=== PATIENT | male | born 1940 | race African-American/Black ===

== ENCOUNTER 2017-04-14 03:19 | Inpatient (IN) | payer MEDICARE, OTHER ==
[~2017-04-14] VITALS: Ht 195.6 cm; Wt 116.0 kg
[2017-04-14] MEDS ORDERED: ACETAMINOPHEN 325 MG TAB PO ONE (03:30)
[2017-04-14 04:31] LABS: Basophils # (auto) 0 uL; Basophils % (auto) 0.2 % (0.0-2.0); Eosinophils # (auto) 0 uL; Hematocrit 44.7 % (41.0-53.0); Hemoglobin 14.9 g/dL (13.5-17.5); Lymphocytes # (auto) 0.7 uL; Lymphocytes % (auto) 4.5 % (10.0-50.0); Mean Corpuscular Hemoglobin 29.2 pg (28.0-32.0); Mean Corpuscular Hgb Conc. 33.3 g/dL (32.0-36.0); Mean Corpuscular Volume 87.7 fL (80.0-100.0); Mean Platelet Volume 7.9 fL (6.9-10.8); Monocytes # (auto) 1.3 uL; Monocytes % (auto) 8.4 % (0.0-12.0); Neutrophils % (auto) 86.9 % (37.0-80.0); Platelet Count (auto) 154 10^3/uL (140-450); Red Cell Distribution Width 14.1 % (11.8-14.3)
[2017-04-14 04:48] LABS: Albumin 3.5 g/dL (3.4-5.0); Anion Gap 10 (5-15); BUN/Creatinine Ratio 12.4; Blood Urea Nitrogen 20 mg/dL (7-18); Calcium 8.8 mg/dL (8.5-10.1); Carbon Dioxide 27 mmol/L (21-32); Chloride 102 mmol/L (98-107); GFR African American 54 mL/min; GFR Non-African American 45 mL/min; Glucose 135 mg/dL (74-106); Potassium 3.4 mmol/L (3.5-5.1); Sodium 139 mmol/L (136-145)
[2017-04-14 04:50] LABS: Lactic Acid w/Reflex 3.6 mmol/L (0.4-2.0)
[2017-04-14 04:57] LABS: Alkaline Phosphatase 50 U/L (45-117); Aspartate Aminotransferase 21 U/L (15-37); Total Protein 7.9 g/dL (6.4-8.2)
[2017-04-14 05:43] LABS: REFLEX LACTIC ACID YES OR NO YES
[2017-04-14 06:00] LABS: INR 1.17 (0.9-1.15); Partial Thromboplastin Time 27.8 sec (22.64-33.71); Prothrombin Time 12.8 sec (9.37-12.3)
[2017-04-14 06:01] LABS: Temperature: 22.2 C (20.0-25.0)
[2017-04-14 07:11] LABS: Urine Bilirubin Negative (Negative); Urine Blood 2+ /uL (Negative); Urine Color Yellow (Yellow); Urine Glucose Normal (Normal); Urine Hyaline Cast FEW /lpf (0 - 2); Urine Ketone Negative (Negative); Urine Mucus FEW (None Seen); Urine Nitrite Negative (Negative); Urine RBC 95 /hpf (0 - 3); Urine Squamous Epithelial Cell FEW /hpf (<5); Urine Urobilinogen Normal (Negative); Urine pH 5.5 (5.0-8.0)
[2017-04-14] MEDS ORDERED: SODIUM CHLORIDE 0.9% 1,000 ML IV ONE ×3 (07:52→21:15)
[2017-04-14] MEDS ORDERED: cefTRIAXone 1GM/10ml IVPUSH 10 ML IV ONE ×2 (08:00→14:15)
[2017-04-14] MEDS ORDERED: IODIXANOL 320MG/ML 100ML BTL IV ONE (09:24)
[2017-04-14] MEDS ORDERED: IOHEXOL 300 MG/ML 100ML BOTTLE IJ ONE (09:50)
[2017-04-14 09:57] LABS: Lactic Acid w/Reflex 3.2 mmol/L (0.4-2.0)
[2017-04-14 10:04] LABS: REFLEX LACTIC ACID YES OR NO NO
[2017-04-14] MEDS ORDERED: LACTULOSE 20Gm/30ML SOLN PO PRN (14:15)
[2017-04-14] MEDS ORDERED: PROMETHAZINE HCL 25 MG/ML 1ML IV PRN (14:15)
[2017-04-14] MEDS ORDERED: NITROGLYCERIN 0.4 MG SL TAB SL PRN (14:15)
[2017-04-14] MEDS ORDERED: HYDROcodone-ACET 5/325MG TAB PO PRN (14:15)
[2017-04-14] MEDS ORDERED: TEMAZEPAM 15 MG CAP PO PRN (14:15)
[2017-04-14] MEDS ORDERED: SODIUM CHLORIDE 0.9% 1,000 ML IV SCH (14:15)
[2017-04-14] MEDS ORDERED: LORazepam 0.5 MG TAB PO PRN (14:15)
[2017-04-14] MEDS ORDERED: MORPHINE SULF INJ 2 MG/ML SYRINGE 1ML IV PRN ×2 (14:15)
[2017-04-14] MEDS ORDERED: ENOXAPARIN SOD 40 MG/0.4 ML SYRINGE SC ONE (14:30)
[2017-04-14] MEDS ORDERED: POTASSIUM CHL 20 Meq TABLET PO ONE (15:00)
[2017-04-14] MEDS: ACETAMINOPHEN 500 MG TAB PO PRN (15:22)
[2017-04-14] MEDS: SODIUM CHLORIDE 0.9% 1,000 ML IV SCH (16:00)
[2017-04-14 16:30] VITALS: BP 109/64
[2017-04-14 17:38] VITALS: BP 109/64
[2017-04-14] MEDS ORDERED: PIPERACILLIN-TAZOB 3.375GM 50 ML IV ONE (17:45)
[2017-04-14] MEDS: PIPERACILLIN-TAZOB 3.375GM 50 ML IV SCH (18:45)
[2017-04-14] MEDS ORDERED: DILTIAZEM HCL 25 MG/5 ML VIAL IV ONE (21:15)
[2017-04-14 21:44] VITALS: BP 90/65
[2017-04-15] MEDS: PROPRANOLOL HCL 20 MG TAB PO SCH ×3 (00:32→21:42)
[2017-04-15] MEDS: PIPERACILLIN-TAZOB 3.375GM 50 ML IV SCH ×2 (00:33→06:19)
[2017-04-15] MEDS: PRAVASTATIN SODIUM 20 MG TAB PO SCH ×2 (00:34→21:41)
[2017-04-15] MEDS: SODIUM CHLORIDE 0.9% 1,000 ML IV SCH ×2 (03:36→10:48)
[2017-04-15] MEDS ORDERED: KETO2CRE4 TOP (04:50)
[2017-04-15] MEDS ORDERED: PROP80CA10 PO (04:50)
[2017-04-15] MEDS ORDERED: DILT300C PO (04:50)
[2017-04-15] MEDS ORDERED: DYA375C PO (04:50)
[2017-04-15] MEDS ORDERED: PRAV20TA3 PO (04:50)
[2017-04-15 04:53] VITALS: BP 108/72
[2017-04-15 06:37] LABS: Basophils # (auto) 0 uL; Eosinophils # (auto) 0 uL; Hematocrit 39.7 % (41.0-53.0); Hemoglobin 13.1 g/dL (13.5-17.5); Lymphocytes # (auto) 0.9 uL; Lymphocytes % (auto) 5.8 % (10.0-50.0); Mean Corpuscular Hemoglobin 28.8 pg (28.0-32.0); Mean Corpuscular Hgb Conc. 33.1 g/dL (32.0-36.0); Mean Corpuscular Volume 87.2 fL (80.0-100.0); Monocytes # (auto) 0.8 uL; Monocytes % (auto) 4.8 % (0.0-12.0); Neutrophils # (auto) 14.5 uL; Neutrophils % (auto) 89.4 % (37.0-80.0); Platelet Count (auto) 113 10^3/uL (140-450); Red Cell Distribution Width 14.3 % (11.8-14.3); White Blood Cell 16.2 10^3/uL (4.4-10.8)
[2017-04-15 06:50] LABS: Potassium 3.4 mmol/L (3.5-5.1)
[2017-04-15 06:53] LABS: Albumin 2.7 g/dL (3.4-5.0); Calcium 7.7 mg/dL (8.5-10.1)
[2017-04-15 06:55] LABS: Bilirubin, Total 0.7 mg/dL (0.2-1.0); Total Protein 6.3 g/dL (6.4-8.2)
[2017-04-15 08:06] VITALS: BP 109/70
[2017-04-15] MEDS ORDERED: cefTRIAXone 1GM/10ml IVPUSH 10 ML IV SCH (09:00)
[2017-04-15] MEDS ORDERED: ENOXAPARIN SOD 40 MG/0.4 ML SYRINGE SC SCH (10:00)
[2017-04-15] MEDS ORDERED: DILTIAZEM HCL 120MG ER CAP PO SCH (10:00)
[2017-04-15] MEDS ORDERED: DILTIAZEM HCL 180MG ER CAP PO SCH ×2 (10:00)
[2017-04-15] MEDS: cefTRIAXone 1GM/10ml IVPUSH 10 ML IV SCH (10:57)
[2017-04-15 11:55] VITALS: BP 157/84
[2017-04-15 16:56] VITALS: BP 138/88
[2017-04-15] MEDS ORDERED: TAMSULOSIN HYDROCHLORIDE 0.4 MG CAP PO SCH (18:00)
[2017-04-15 20:00] VITALS: BP 133/72
[2017-04-15] MEDS: ACETAMINOPHEN 500 MG TAB PO PRN (21:43)
[2017-04-15 21:57] VITALS: BP 133/72
[2017-04-16 04:27] VITALS: BP 129/82
[2017-04-16 05:56] LABS: Basophils # (auto) 0 uL; Basophils % (auto) 0.1 % (0.0-2.0); Eosinophils # (auto) 0 uL; Hematocrit 34.8 % (41.0-53.0); Hemoglobin 11.8 g/dL (13.5-17.5); Lymphocytes # (auto) 0.7 uL; Lymphocytes % (auto) 6.5 % (10.0-50.0); Mean Corpuscular Hemoglobin 29.5 pg (28.0-32.0); Mean Corpuscular Hgb Conc. 33.9 g/dL (32.0-36.0); Mean Platelet Volume 8.3 fL (6.9-10.8); Neutrophils # (auto) 9.5 uL; Neutrophils % (auto) 84.4 % (37.0-80.0); Nucleated Red Blood Cells % 0.1 %; Platelet Count (auto) 112 10^3/uL (140-450); Red Cell Distribution Width 14.2 % (11.8-14.3); White Blood Cell 11.3 10^3/uL (4.4-10.8)
[2017-04-16 06:18] LABS: BUN/Creatinine Ratio 15.6; Calcium 7.5 mg/dL (8.5-10.1); Potassium 3.3 mmol/L (3.5-5.1)
[2017-04-16] MEDS: SODIUM CHLORIDE 0.9% 1,000 ML IV SCH ×2 (06:48→13:25)
[2017-04-16 08:00] VITALS: BP 106/63
[2017-04-16 08:19] VITALS: BP 106/63
[2017-04-16] MEDS: PROPRANOLOL HCL 20 MG TAB PO SCH (09:58)
[2017-04-16] MEDS: cefTRIAXone 1GM/10ml IVPUSH 10 ML IV SCH (09:59)
[2017-04-16] MEDS ORDERED: POTASSIUM CHL 20 Meq TABLET PO ONE (11:15)
[2017-04-16 13:04] VITALS: BP 121/69
[2017-04-16 13:55] VITALS: BP 121/69
[2017-04-16 14:04] VITALS: BP 106/63
== END 2017-04-16 14:40 | disposition home or self-care (01) | DRG 871 ==
LOC: EDBD 03:19 → ER 03:24 → TELE 03:25 → TELE-EAST 16:37
PROVIDERS: ADMIT Internal Medicine; ATTEND Internal Medicine
DX: A41.9 Sepsis, unspecified organism (principal); N17.0 Acute kidney failure with tubular necrosis; N39.0 Urinary tract infection, site not specified; N28.1 Cyst of kidney, acquired; I11.9 Hypertensive heart disease without heart failure; E87.6 Hypokalemia; K80.20 Calculus of gallbladder without cholecystitis without obstruction; K44.9 Diaphragmatic hernia without obstruction or gangrene; I51.7 Cardiomegaly; E78.5 Hyperlipidemia, unspecified; I25.10 Atherosclerotic heart disease of native coronary artery without angina pectoris; I70.0 Atherosclerosis of aorta; Z86.718 Personal history of other venous thrombosis and embolism; Z90.49 Acquired absence of other specified parts of digestive tract
CPT/HCPCS: 36415; 71010; 71275; 80048; 80053; 81001; 83605; 83880; 84443; 84484; 85025; 85379; 85610; 85652; 85730; 87040; 87086; 93005; 96361; 96365; 96367; 97116; 97163; 97530; J2543; Q9967

== ENCOUNTER 2020-01-02 03:32 | Inpatient (IN) | payer MEDICARE, OTHER ==
[~2020-01-02] VITALS: Ht 195.6 cm; Wt 106.5 kg
[~2020-01-02 03:32] MED LIST: DILT-23 PO; DYA375C PO; KETO2CRE4 TOP; PRAV20TA3 PO; PROP80CA40 PO
[2020-01-02] MEDS ORDERED: dilTIAZem HCL 60 MG TAB PO ONE (05:45)
[2020-01-02] MEDS ORDERED: dilTIAZem 25 MG/5 ML VIAL IV ONE (05:45)
[2020-01-02] MEDS ORDERED: ACETAMINOPHEN 325 MG TAB PO ONE (06:30)
[2020-01-02 07:28] LABS: Hematocrit 38.6 % (41.0-53.0); Hemoglobin 12.4 g/dL (13.5-17.5); Mean Corpuscular Hemoglobin 27.5 pg (28.0-32.0); Mean Corpuscular Hgb Conc. 32.1 g/dL (32.0-36.0); Mean Corpuscular Volume 85.8 fL (80.0-100.0); Platelet Count (auto) 170 10^3/uL (140-450); Red Cell Distribution Width 14.4 % (11.8-14.3); White Blood Cell 11.9 10^3/uL (4.4-10.8)
[2020-01-02 07:31] LABS: Basophils % (manual) 0 (0.0-2.0); Blast Cells 0; Eosinophils % (manual) 0 (0-7); Metamyelocytes % 0; Myelocytes % 0; Promyelocytes % 0; Reactive Lymphocytes 0
[2020-01-02 07:33] LABS: Urine Bacteria MOD /hpf (None Seen); Urine Blood 2+ /uL (Negative); Urine Specific Gravity 1.016 (1.001-1.035); Urine WBC 1878 /hpf (0 - 3)
[2020-01-02 07:51] LABS: Albumin 2.8 g/dL (3.4-5.0); Alcohol, Urine < 3.0 mg/dL (0-10); Amphetamine Screen, Urine NEGATIVE (NEGATIVE); Anion Gap 5 (5-15); Barbiturate Scree,Urine NEGATIVE (NEGATIVE); Benzodiazephine Screen, Urine NEGATIVE (NEGATIVE); Blood Alcohol < 3.0 mg/dL (0-5); Blood Urea Nitrogen 29 mg/dL (7-18); Calcium 8.1 mg/dL (8.5-10.1); Cannabinoid Screen, Urine NEGATIVE (NEGATIVE); Carbon Dioxide 28 mmol/L (21-32); Chloride 106 mmol/L (98-107); Cocaine Screen, Urine NEGATIVE (NEGATIVE); Glucose 97 mg/dL (74-106); Opiate Scree,Urine NEGATIVE (NEGATIVE); Phencyclidine Screen, Urine NEGATIVE (NEGATIVE); Potassium 3.1 mmol/L (3.5-5.1); Sodium 139 mmol/L (136-145)
[2020-01-02 07:56] LABS: Alanine Aminotransferase 21 U/L (16-61); Alkaline Phosphatase 68 U/L (45-117); Aspartate Aminotransferase 36 U/L (15-37); BUN/Creatinine Ratio 16.2; Bilirubin, Total 1.4 mg/dL (0.2-1.0); GFR African American 47 mL/min; GFR Non-African American 39 mL/min; Total Protein 6.8 g/dL (6.4-8.2)
[2020-01-02 08:05] LABS: Band Neutrophils % (manual) 4; Lymphocytes % (manual) 9 (10.0-50.0); Monocytes % (manual) 11 (0-12)
[2020-01-02] MEDS ORDERED: cefTRIAXone 1GM/50ML D5W 50 ML IV ONE (08:30)
[2020-01-02] MEDS ORDERED: POTASSIUM EFFERVESENT TAB 25 MEQ PO ONE ×2 (08:30→12:00)
[2020-01-02] MEDS ORDERED: MORPHINE SULF INJ 2 MG/ML SYRINGE 1ML IV PRN ×2 (11:45)
[2020-01-02] MEDS ORDERED: ACETAMINOPHEN 500 MG TAB PO PRN ×2 (11:45)
[2020-01-02] MEDS ORDERED: LACTULOSE 20Gm/30ML SOLN PO PRN (11:45)
[2020-01-02] MEDS ORDERED: traMADol HCL 50 MG TAB PO PRN (11:45)
[2020-01-02] MEDS ORDERED: SODIUM CHLORIDE 0.9% 1,000 ML IV ONE (11:45)
[2020-01-02] MEDS ORDERED: TEMAZEPAM 15 MG CAP PO PRN (11:45)
[2020-01-02] MEDS ORDERED: NITROGLYCERIN 0.4 MG SL TAB SL PRN (11:45)
[2020-01-02] MEDS: AZITHROMYCIN 500MG/ 250ML 250 ML IV SCH (12:53)
[2020-01-02] MEDS: ALBUTEROL SULF HFA 90MCG INH 200DOSE IN SCH ×2 (14:00→21:38)
--- NOTE | 2020-01-02 14:00 | NUR ---
Respiratory note: MDI NOT AT BEDSIDE. PENDING COVID RESULTS, NO RESP DISTRESS NOTED. HR 60, RR 24,SPO2 100% ON ROOM AIR. RN IS AWARE OF MDI BEING HELD.
[2020-01-02 17:05] VITALS: BP 152/57
--- NOTE | 2020-01-02 17:05 | NUR ---
Telemetry admit from ER SUSANA SHUKLA admitted to Telemetry unit after SBAR received. Patient oriented to SILAS KRUGER, primary RN, unit, room, bed, and unit policies regarding patient care and visiting hours. Patient now on continuous telemetry monitoring, tele box # 12 and telemetry reading on arrival to unit is SR. Patient placed on bedside oxygen, weighed by bedscale and encouraged to call if they need something. All questions and concerns addressed, patient verbalized understanding.
--- NOTE | 2020-01-02 17:15 | NUR ---
PT TREMBLING AT TIME OF ADMISSION. TEMPERATURE IS 102.2. WILL ADMINISTER TYLENOL, APPLY COOLING MEASURES AND WILL REASSESS.
[2020-01-02 17:20] LABS: INR 1.11 (0.9-1.15)
--- NOTE | 2020-01-02 17:35 | NUR ---
PAGED DR BERRY PER NOTE. LEFT VOICEMAIL. AWAITING VOICEMAIL. Addendum: 01/02/20 at 1901 by SILAS KRUGER RN AWAITING CALLBACK.
[2020-01-02 17:53] VITALS: BP 124/68
--- NOTE | 2020-01-02 18:35 | NUR ---
PT'S TEMP IS NOW 97.6 AND NO LONGER TREMBLING.
--- NOTE | 2020-01-02 19:10 | NUR ---
opening note pt alert to self and situation only. no c/o pain or discomfort. respirations even nonlabored on 3Lnc. POC discussed. bed in low locked position, call light within reach.
[2020-01-02] MEDS: BUDESONIDE (INHALATION) 180 MCG IH IN SCH (21:38)
[2020-01-02] MEDS: ENOXAPARIN SOD 100 MG/1 ML SYRINGE SC SCH (21:54)
[2020-01-02] MEDS: ATORVASTATIN 20 MG TAB PO SCH (21:54)
[2020-01-02 22:00] VITALS: BP 102/67
--- NOTE | 2020-01-02 22:30 | NUR ---
Gave an update to dr. James, no new orders received.
[2020-01-03 05:00] VITALS: BP 114/63
[2020-01-03] MEDS: ALBUTEROL SULF HFA 90MCG INH 200DOSE IN SCH ×3 (06:00→21:45)
[2020-01-03 07:22] LABS: Basophils # (auto) 0 10 ^3/uL (0-0.2); Basophils % (auto) 0.1 % (0.0-2.0); Eosinophils # (auto) 0.1 10 ^3/uL (0-0.8); Eosinophils % (auto) 0.5 % (0.0-7.0); Hematocrit 35.7 % (41.0-53.0); Hemoglobin 11.8 g/dL (13.5-17.5); Lymphocytes # (auto) 0.6 10 ^3/uL (0.4-5.4); Lymphocytes % (auto) 5.3 % (10.0-50.0); Mean Corpuscular Hemoglobin 28.2 pg (28.0-32.0); Mean Corpuscular Hgb Conc. 33.2 g/dL (32.0-36.0); Monocytes # (auto) 0.8 10 ^3/uL (0-1.3); Monocytes % (auto) 7.5 % (0.0-12.0); Neutrophils # (auto) 9.4 10 ^3/uL (1.6-8.6); Neutrophils % (auto) 86.6 % (37.0-80.0); Platelet Count (auto) 176 10^3/uL (140-450); Red Blood Cells 4.19 10^6/uL (4.5-5.90); Red Cell Distribution Width 14.4 % (11.8-14.3); White Blood Cell 10.8 10^3/uL (4.4-10.8)
--- NOTE | 2020-01-03 07:26 | NUR ---
closing note pt resting in right lateral position. respirations even nonlabored on 3Lnc. no complaints of pain or discomfort. endorsed care to day shift RN Will.
[2020-01-03 07:45] LABS: Albumin 2.5 g/dL (3.4-5.0); Calcium 7.6 mg/dL (8.5-10.1); Potassium 3.3 mmol/L (3.5-5.1)
[2020-01-03 07:51] LABS: BUN/Creatinine Ratio 19.7; Bilirubin, Total 1.1 mg/dL (0.2-1.0)
--- NOTE | 2020-01-03 08:06 | NUR ---
OPENING SHIFT NOTE Resumed care of patient. PT is awake and now a&ox4. No SOB or s/s of distress at this time. Instructed on plan of care and encouraged patient to call for assistance as needed, patient verbalized understanding. Bed is locked in lowest position, side rails x 2 are up, call light is within reach, and bed alarm is on.
[2020-01-03 09:00] VITALS: BP 127/72
[2020-01-03] MEDS ORDERED: QUET100T46 PO (09:47)
[2020-01-03] MEDS ORDERED: ALFU10TA33 PO (09:47)
[2020-01-03] MEDS ORDERED: DONE10TA40 PO (09:47)
[2020-01-03] MEDS ORDERED: MEMA1TAB3 PO (09:47)
[2020-01-03] MEDS ORDERED: ENOXAPARIN SOD 40 MG/0.4 ML SYRINGE SC SCH (10:00)
[2020-01-03] MEDS: BUDESONIDE (INHALATION) 180 MCG IH IN SCH ×2 (10:00→21:45)
[2020-01-03] MEDS ORDERED: DexAMETHasone SOD PHOS 10MG/1ML VIAL INJ IV SCH (10:00)
[2020-01-03] MEDS: ENOXAPARIN SOD 100 MG/1 ML SYRINGE SC SCH (10:26)
[2020-01-03] MEDS: cefTRIAXone 1GM/50ML D5W 50 ML IV SCH (10:26)
[2020-01-03] MEDS: AZITHROMYCIN 500MG/ 250ML 250 ML IV SCH (10:27)
[2020-01-03] MEDS: ZINC SULFATE 220mg CAP or TAB PO SCH (10:27)
[2020-01-03] MEDS: CHOLECALCIFEROL (VITD3) 2,000 UNIT CAP PO SCH (10:27)
[2020-01-03] MEDS: ASPirin 81 mg TAB PO SCH (10:28)
[2020-01-03] MEDS: ASCORBIC ACID 1,000 MG TAB PO SCH (10:28)
[2020-01-03] MEDS ORDERED: POTASSIUM CHL 20 Meq TABLET PO ONE (10:45)
[2020-01-03 13:00] VITALS: BP 106/72
--- NOTE | 2020-01-03 16:16 | NUR ---
RECEIVED PHONE CALL FROM RADIOLOGY IN REGARDS TO RECENT CT. PER TECH THE RADIOLOGIST WANTED TO SPEAK TO PATIENTS HOSPITALIST. SPOKE TO Conner GREENWOOD AND LINES WERE CONNECTED.
[2020-01-03 17:00] VITALS: BP 110/70
--- NOTE | 2020-01-03 17:15 | NUR ---
PT C/O OF 7/10 CHEST PAIN. EKG PERFORMED AND SHOWED SINUS RHYTHM. ADMINISTERED MORPHINE WILL CONTINUE TO MONITOR AND WILL REASSESS IN 30 MINUTES.
--- NOTE | 2020-01-03 17:45 | NUR ---
PT STILL C/O 11/19 NON RADIATING CHEST PAIN. ADMINISTERED NITROGLYCERIN TAB. PT FELT RELIEF AT 5 MINUTE REASSESSMENT. WILL CONTINUE TO MONITOR AND WILL CALL HOSPITALIST IF NEEDED. V/S WNL.
--- NOTE | 2020-01-03 19:04 | NUR ---
RECEIVED CALL FROM DR BERRY. UPDATED MD ON PT CONDITION REGARDING COVID STATUS, URINATION, AND MENTATION. MD STATED PT WILL HAVE PROCEDURE TOMORROW 01/03 AT 1400. WILL UPDATE NIGHT NURSE AND ENDORSE CARE.
--- NOTE | 2020-01-03 20:57 | NUR ---
Patient heart rate maintaining above 160, hospitalist paged.
--- NOTE | 2020-01-03 21:00 | NUR ---
hospitalist Yobani telephone order New orders received: Metoprolol IV 5mg max three doses five mins apart for a heart rate of >140. Orders read back and verified. This nurse will carry out orders.
[2020-01-03] MEDS ORDERED: METOPROLOL TARTRATE 1MG/1ML-5ML VIAL IV SCH (21:15)
--- NOTE | 2020-01-03 21:42 | NUR ---
MDI AND DPI NON ADMINISTERED AT THIS TIME. HELD DUE TO COVID R/O.
[2020-01-03 22:00] VITALS: BP 119/56
[2020-01-03] MEDS: ATORVASTATIN 20 MG TAB PO SCH (22:08)
[2020-01-04 05:00] VITALS: BP 123/59
[2020-01-04 05:20] LABS: Basophils # (auto) 0 10 ^3/uL (0-0.2); Basophils % (auto) 0.2 % (0.0-2.0); Eosinophils # (auto) 0 10 ^3/uL (0-0.8); Hematocrit 39.5 % (41.0-53.0); Hemoglobin 12.8 g/dL (13.5-17.5); Lymphocytes # (auto) 0.7 10 ^3/uL (0.4-5.4); Lymphocytes % (auto) 5.6 % (10.0-50.0); Mean Corpuscular Hemoglobin 27.6 pg (28.0-32.0); Mean Corpuscular Hgb Conc. 32.4 g/dL (32.0-36.0); Mean Corpuscular Volume 85.2 fL (80.0-100.0); Monocytes # (auto) 0.8 10 ^3/uL (0-1.3); Monocytes % (auto) 7.1 % (0.0-12.0); Neutrophils # (auto) 10.2 10 ^3/uL (1.6-8.6); Neutrophils % (auto) 87.1 % (37.0-80.0); Nucleated Red Blood Cells % 0.1 %; Platelet Count (auto) 183 10^3/uL (140-450); Red Blood Cells 4.63 10^6/uL (4.5-5.90); Red Cell Distribution Width 14.4 % (11.8-14.3); White Blood Cell 11.7 10^3/uL (4.4-10.8)
[2020-01-04 05:43] LABS: Calcium 7.8 mg/dL (8.5-10.1); Magnesium 2.8 mg/dL (1.6-2.6); Potassium 3.4 mmol/L (3.5-5.1)
[2020-01-04 05:45] LABS: Phosphorus 2.2 mg/dL (2.5-4.90)
[2020-01-04] MEDS: ALBUTEROL SULF HFA 90MCG INH 200DOSE IN SCH ×3 (06:00→06:13)
[2020-01-04] MEDS: BUDESONIDE (INHALATION) 180 MCG IH IN SCH ×3 (06:04→06:13)
--- NOTE | 2020-01-04 06:04 | NUR ---
Respiratory note: HR 47, RR 14, SPO2 96% ON 3 L NC, BS CLEAR AND DIMINISHED. MDI HELD PENDING COVID TEST RESULTS.
--- NOTE | 2020-01-04 07:06 | NUR ---
closing note pt alert and oriented to self, place, and situation. pt denies pain or distress at this time. no s/s of distress. pts HR IS 55. respirations even and nonlabored on 3 liters nasal cannula.
[2020-01-04 08:00] VITALS: BP 128/74
[2020-01-04] MEDS ORDERED: POTASSIUM PHOSPHATE 26.4 MEQ in SODIUM CHL 0.9% 100 ML IV ONE (08:15)
[2020-01-04] MEDS: cefTRIAXone 1GM/50ML D5W 50 ML IV SCH (09:04)
[2020-01-04] MEDS: ZINC SULFATE 220mg CAP or TAB PO SCH (09:05)
[2020-01-04] MEDS: ASPirin 81 mg TAB PO SCH (09:05)
[2020-01-04] MEDS: ENOXAPARIN SOD 40 MG/0.4 ML SYRINGE SC SCH (09:06)
[2020-01-04] MEDS: CHOLECALCIFEROL (VITD3) 2,000 UNIT CAP PO SCH (09:06)
[2020-01-04] MEDS: ASCORBIC ACID 1,000 MG TAB PO SCH (09:06)
[2020-01-04] MEDS: AZITHROMYCIN 500MG/ 250ML 250 ML IV SCH ×2 (09:07→11:20)
[2020-01-04] MEDS ORDERED: POTASSIUM CHL 20 Meq TABLET PO ONE (10:30)
--- NOTE | 2020-01-04 10:40 | NUR ---
Physician rounding Dr. West at bedside. MD updated patient on plan of care, patient verbalized understanding. No new orders received, will continue care.
--- NOTE | 2020-01-04 11:35 | NUR ---
Report given to DK Gonzalez.
--- NOTE | 2020-01-04 11:45 | NUR ---
room transfer patient transferred via wheel chair with all personal belongings, on 3L oxygen via nasal cannula to 203 with DK Gonzalez. No s/s of distress noted.
--- NOTE | 2020-01-04 11:46 | NUR ---
Assume care of patient Patient resting in bed with even and unlabored respirations, no distress noted. Instructed patient on POC, fall precautions and to call for assistance as needed. patient verbalized understanding. Fall precautions in place with call light within reach.
--- NOTE | 2020-01-04 12:13 | NUR ---
RE: Urine culture results Dr. West aware of microbiology results.
[2020-01-04 13:00] VITALS: BP 149/86
--- NOTE | 2020-01-04 13:04 | NUR ---
RE: PO Potassium Patient NPO for schedule procedure. Called pre-op RE: administration of PO medication. Medication to be administered after scheduled procedure.
--- NOTE | 2020-01-04 14:04 | NUR ---
Patient transferred to pre-op via hospital bed Respirations even and unlabored, no distress noted. IV access patent with no s/s of infiltration or leaking noted.
[2020-01-04] MEDS ORDERED: ceFAZolin 1GM/50ML 50 ML IV ONE (14:31)
[2020-01-04] MEDS ORDERED: IOHEXOL 300 MG/ML 100ML BOTTLE IJ ONE (14:36)
[2020-01-04] MEDS ORDERED: ONDANSETRON HCL 4 MG/2 ML VIAL IV PRN (15:00)
[2020-01-04] MEDS ORDERED: NALOXONE HCL 0.4 MG/ML VIAL IV PRN (15:00)
[2020-01-04] MEDS ORDERED: HYDROmorphone HCL 2 MG/ML VL IV PRN (15:00)
[2020-01-04] MEDS ORDERED: SUCCINYLCHOLINE CHLORIDE 20 MG/ML 10ML VIAL IV ONE (15:01)
[2020-01-04] MEDS ORDERED: METOCLOPRAMIDE HCL 5MG/ml INJ 2ml VIAL ONE (15:05)
[2020-01-04] MEDS ORDERED: ETOMIDATE (2MG/ML) 20ML VIAL IV ONE (15:08)
[2020-01-04] MEDS ORDERED: ROCURONIUM 10MG/ML 10ML VIAL IV ONE (15:11)
[2020-01-04] MEDS ORDERED: MIDAZOLAM HCL 1MG/1ML-2 ML VIAL ONE (15:12)
[2020-01-04] MEDS ORDERED: fentaNYL CITRATE 100 MCG/2 ML VL ONE (15:29)
[2020-01-04] MEDS ORDERED: NEOSTIGMINE 1 MG/ML INJ (10mg/10ML VIAL) ONE (15:41)
[2020-01-04] MEDS ORDERED: GLYCOPYRROLATE 0.2 MG/ML 1ML VIAL ONE (15:41)
--- NOTE | 2020-01-04 15:52 | NUR ---
RE: Interventions Patient off unit at scheduled procedure. Addendum: 01/04/20 at 1654 by Lisa Mcnally RN Amended: Links added.
[2020-01-04] MEDS ORDERED: hydrALAZINE HCL 20 MG/ML VL ONE (16:05)
[2020-01-04] MEDS ORDERED: hydrALAZINE HCL 20 MG/ML VL IV ONE (16:30)
[2020-01-04 17:19] VITALS: BP 159/87
--- NOTE | 2020-01-04 17:19 | NUR ---
Patient returned to unit via hospital bed Patient awake & alert. Respirations even and unlabored, no distress noted. Meyers catheter in place. Catheter is patent and draining to gravity. Fall precautions in place with call light within reach; bed alarm on for safety.
[2020-01-04] MEDS ORDERED: MEROPENEM 1GM IVPB 100 ML IV SCH (17:30)
--- NOTE | 2020-01-04 18:25 | NUR ---
RE: Medication not available IV antibiotic not available. Called pharmacy to notify. Medication to be delivered to unit per pharmacist.
--- NOTE | 2020-01-04 18:35 | NUR ---
Closing note Patient sitting at side of bed with both feet dangling on floor. Respirations even and unlabored, no distress noted. Fall precautions in place with call light within reach. Meyers catheter in place is patent and draining to gravity. Urine is yellow in color.
--- NOTE | 2020-01-04 18:53 | NUR ---
RE: Medication not available IV antibiotic continues to not be available from pharmacy. Pharmacy aware.
--- NOTE | 2020-01-04 19:10 | NUR ---
Care endorsed DK Leija. Endorsed scheduled Merrem to [facility]. Medication not available from pharmacy.
--- NOTE | 2020-01-04 19:58 | NUR ---
open note assumed care of pt, upon entering room pt awake, alert and sitting up at bedside. pt on 2L nc no distress noted or expressed. pt denies any pain at this time. pt oriented to this nurse, and updated on plan of care. pt assisted to cover up in bed and get comfortable. no additional questions at this time. bed locked, low and 2x rails up. call light in reach. zuniga in place, secured, below the waist and draining cloudy yellow. pt encouraged to call as needed. this nurse to round q1hr and prn.
[2020-01-04] MEDS ORDERED: TAMSULOSIN HYDROCHLORIDE 0.4 MG CAP PO ONE (21:00)
[2020-01-04] MEDS: ATORVASTATIN 20 MG TAB PO SCH (21:31)
[2020-01-04 22:00] VITALS: BP 116/74
[2020-01-04] MEDS: AMPICILLIN INJ 1 GM in SODIUM CHL 0.9% 50 ML IV SCH (23:39)
[2020-01-05 05:00] VITALS: BP 119/61
--- NOTE | 2020-01-05 05:20 | NUR ---
pt tolerated ambulating to restroom with minimum assist.
[2020-01-05] MEDS: AMPICILLIN INJ 1 GM in SODIUM CHL 0.9% 50 ML IV SCH ×2 (05:35→13:15)
[2020-01-05 05:42] LABS: Basophils # (auto) 0 10 ^3/uL (0-0.2); Basophils % (auto) 0.2 % (0.0-2.0); Eosinophils # (auto) 0 10 ^3/uL (0-0.8); Eosinophils % (auto) 0.1 % (0.0-7.0); Hematocrit 35.4 % (41.0-53.0); Hemoglobin 11.6 g/dL (13.5-17.5); Lymphocytes # (auto) 0.7 10 ^3/uL (0.4-5.4); Lymphocytes % (auto) 6.2 % (10.0-50.0); Mean Corpuscular Hemoglobin 27.9 pg (28.0-32.0); Mean Corpuscular Hgb Conc. 32.9 g/dL (32.0-36.0); Mean Corpuscular Volume 84.8 fL (80.0-100.0); Monocytes # (auto) 1.2 10 ^3/uL (0-1.3); Monocytes % (auto) 10.7 % (0.0-12.0); Neutrophils # (auto) 9.3 10 ^3/uL (1.6-8.6); Neutrophils % (auto) 82.8 % (37.0-80.0); Platelet Count (auto) 188 10^3/uL (140-450); Red Blood Cells 4.18 10^6/uL (4.5-5.90); Red Cell Distribution Width 14.4 % (11.8-14.3); White Blood Cell 11.2 10^3/uL (4.4-10.8)
[2020-01-05 05:59] LABS: Albumin 2.4 g/dL (3.4-5.0); Calcium 7.4 mg/dL (8.5-10.1); Potassium 3.3 mmol/L (3.5-5.1)
[2020-01-05 06:03] LABS: Bilirubin, Total 0.5 mg/dL (0.2-1.0); Phosphorus 1.7 mg/dL (2.5-4.90); Total Protein 5.6 g/dL (6.4-8.2)
--- NOTE | 2020-01-05 08:00 | NUR ---
Morning note Patient resting in bed with even and unlabored respirations, no distress noted. Instructed patient on POC, fall precautions and to call for assistance as needed. patient verbalized understanding. Fall precautions in place with call light with in reach.
[2020-01-05] MEDS ORDERED: POTASSIUM CHL 20 Meq TABLET PO ONE (08:15)
[2020-01-05] MEDS ORDERED: POTASSIUM PHOSPHATE 26.4 MEQ in SODIUM CHL 0.9% 100 ML IV ONE (08:45)
--- NOTE | 2020-01-05 08:59 | NUR ---
MD was at bedside - Dr. West POC discussed with this RN. Order received and read back to verify.
[2020-01-05 09:14] VITALS: BP 130/70
[2020-01-05] MEDS ORDERED: ERTAPENEM SOD INJ 1 GM in SODIUM CHL 0.9% 50 ML IV SCH (10:00)
[2020-01-05] MEDS: ENOXAPARIN SOD 40 MG/0.4 ML SYRINGE SC SCH (10:08)
[2020-01-05] MEDS: ASPirin 81 mg TAB PO SCH (10:09)
--- NOTE | 2020-01-05 10:15 | NUR ---
Meyers catheter clamped to collect urine specimen. Instructed patient to notify staff if any discomfort or pain is noted. Patient verbalized understanding. Call light within reach.
--- NOTE | 2020-01-05 10:45 | NUR ---
Urine specimen collected & sent to lab per MD order. Urine collected with aseptic technique from zuniga catheter.
--- NOTE | 2020-01-05 11:14 | NUR ---
Assessment Patient is a 79-year-old male who is alert and oriented. Prior to admission patient lived with his Kayy and functioned independently. Per patient he can care for his own ADL's. Patient informed he has a walker for home use. Advised patient there is a social service consult for SNF placement for IV abx for 14days. Informed patient clinical information will be faxed to facility. Information and choice letter was given to patient. Patient requested [facility] acute. Informed Patient he has a right to participate in all discharge planning. Patient verbalized understanding discharge plan. Faxed clinical information to [facility]. Per Samaria with [facility] patient has been accepted to room [address] West. Transportation has been arranged with [employer] at 4:30pm via [place] and oxygen. Informed DK Gonzalez. Addendum: 01/05/20 at 1119 by PAVEL LOPEZ Amended: Links added.
[2020-01-05 11:26] LABS: Creatinine, Urine 39 mg/dL (30.0-125.0); Protein, Urine 27.6 mg/dL (0.0-11.9); Sodium Urine 81 mmol/L (40-220)
[2020-01-05 12:37] VITALS: BP 140/74
--- NOTE | 2020-01-05 12:51 | NUR ---
PICC line/Midline RN at bedside IV antibiotics to be administered after placement.
--- NOTE | 2020-01-05 13:29 | NUR ---
Midline Placement: Patient educated on need for midline placement. All risks and benefits explained and all questions and concerns addressed prior to procedure. 18 g/10 cm midline inserted via Left Brachial vein using Ultrasound. Sterile technique utilized. Blood return obtained from lumen and flushed easily with NS using proper technique. Midline secured with saline lock; biodisc and occlusive dressing applied. Primary DK Gonzalez notified. Midline lot # [id number].
--- NOTE | 2020-01-05 13:50 | NUR ---
RE: Microbiology result Notified of positive blood culture results from covering RN. Notified Dr. West of results. verbalized understanding.
[2020-01-05 16:22] VITALS: BP 120/64
--- NOTE | 2020-01-05 16:33 | NUR ---
Discharge Discharge education and paperwork provided to patient per MD order. Patient verbalized understanding. IV removed from the RWR with aseptic technique, catheter intact. Dressing applied. Patient tolerated well, no trauma to site. Midline in place per MD order for IV antibiotics at [facility]. Midline dressing to the MIKE is clean, dry and intact. Meyers catheter in place per MD order. Catheter is secured, patent and draining to gravity. Telemonitor removed and returned. Patient reports having all personal belongings. Respirations even and unlabored, no distress noted. Patient transferred to [facility] provided by [facility] transportation with no complications.
--- NOTE | 2020-01-05 16:35 | NUR ---
Report called to [facility] - spoke with Kathleen.
--- NOTE | 2020-01-05 16:45 | NUR ---
Patient's spouse updated on transfer Alyce, patient's spouse, updated on transfer including room number and bed number. Alyce was provided with facility phone number.
[2020-01-05] MEDS ORDERED: TAMSULOSIN HYDROCHLORIDE 0.4 MG CAP PO SCH (18:00)
== END 2020-01-05 16:35 | DRG 853 ==
LOC: ER 03:32 → EDBD 03:32 → TELE 03:33 → TELE-EAST 16:55 → TELE-CENTR 01-04 11:47
PROVIDERS: ADMIT Internal Medicine; ATTEND Internal Medicine
PROC: 0T9D8ZZ Drainage of Urethra, Via Natural or Artificial Opening Endoscopic (ICD-10-PCS; principal; 2020-01-04 14:56)
DX: A41.51 Sepsis due to Escherichia coli [E. coli] (principal); I21.A1 Myocardial infarction type 2; G93.41 Metabolic encephalopathy; N17.9 Acute kidney failure, unspecified; E44.0 Moderate protein-calorie malnutrition; J90 Pleural effusion, not elsewhere classified; R57.9 Shock, unspecified; N13.6 Pyonephrosis; D64.9 Anemia, unspecified; E87.6 Hypokalemia; N18.3 Chronic kidney disease, stage 3 (moderate); N40.1 Benign prostatic hyperplasia with lower urinary tract symptoms; R33.8 Other retention of urine; I25.10 Atherosclerotic heart disease of native coronary artery without angina pectoris; I48.91 Unspecified atrial fibrillation; N32.0 Bladder-neck obstruction; Z20.828 Contact with and (suspected) exposure to other viral communicable diseases; E78.5 Hyperlipidemia, unspecified; I13.10 Hypertensive heart and chronic kidney disease without heart failure, with stage 1 through stage 4 chronic kidney disease, or unspecified chronic kidney disease; Z80.0 Family history of malignant neoplasm of digestive organs; Z80.42 Family history of malignant neoplasm of prostate; Z82.49 Family history of ischemic heart disease and other diseases of the circulatory system; Z87.440 Personal history of urinary (tract) infections; Z68.33 Body mass index [BMI] 33.0-33.9, adult
CPT/HCPCS: 36415; 71045; 74176; 76775; 80048; 80053; 80307; 80320; 81001; 82550; 82570; 83605; 83735; 83880; 84100; 84154; 84156; 84300; 84443; 84484; 85007; 85025; 85027; 85610; 86850; 86900; 86901; 87040; 87077; 87086; 87088; 87186; 87426; 93005; 96365; 96367; G0378; J0330; J0690; J0696; J1100; J1335; J2185; J2250

== ENCOUNTER 2020-02-15 12:41 | Inpatient (IN) | payer MEDICARE ==
[~2020-02-15] VITALS: Ht 195.6 cm; Wt 93.5 kg
[~2020-02-15 12:41] MED LIST changes: +ALFU10TA33 PO; +DONE10TA40 PO; +MEMA1TAB3 PO; +QUET100T46 PO
[2020-02-15 14:13] LABS: Urine Bacteria FEW /hpf (None Seen); Urine Blood 2+ /uL (Negative); Urine Hyaline Cast MANY /lpf (0 - 2); Urine Mucus FEW (None Seen); Urine Specific Gravity 1.022 (1.001-1.035); Urine WBC 55 /hpf (0 - 3)
[2020-02-15 15:01] LABS: Basophils # (auto) 0 10 ^3/uL (0-0.2); Basophils % (auto) 0.1 % (0.0-2.0); Eosinophils # (auto) 0 10 ^3/uL (0-0.8); Eosinophils % (auto) 0.2 % (0.0-7.0); Hematocrit 42.2 % (41.0-53.0); Hemoglobin 13.8 g/dL (13.5-17.5); Lymphocytes # (auto) 1.2 10 ^3/uL (0.4-5.4); Lymphocytes % (auto) 12.4 % (10.0-50.0); Mean Corpuscular Hemoglobin 27.7 pg (28.0-32.0); Mean Corpuscular Hgb Conc. 32.7 g/dL (32.0-36.0); Mean Corpuscular Volume 84.6 fL (80.0-100.0); Monocytes # (auto) 1.2 10 ^3/uL (0-1.3); Monocytes % (auto) 12.8 % (0.0-12.0); Neutrophils % (auto) 74.5 % (37.0-80.0); Nucleated Red Blood Cells % 0.1 %; Platelet Count (auto) 231 10^3/uL (140-450); Red Blood Cells 4.99 10^6/uL (4.5-5.90); Red Cell Distribution Width 15.2 % (11.8-14.3); White Blood Cell 9.4 10^3/uL (4.4-10.8)
[2020-02-15 15:13] LABS: Albumin 2.5 g/dL (3.4-5.0); Calcium 8.6 mg/dL (8.5-10.1); Magnesium 2.8 mg/dL (1.6-2.6); Potassium 3.4 mmol/L (3.5-5.1)
[2020-02-15 15:18] LABS: BUN/Creatinine Ratio 17.9; Bilirubin, Total 1.5 mg/dL (0.2-1.0); Total Protein 7.2 g/dL (6.4-8.2)
[2020-02-15 15:38] LABS: INR 1.24 (0.9-1.15); Partial Thromboplastin Time 28.8 sec (23.0-31.2)
[2020-02-15] MEDS ORDERED: SODIUM CHLORIDE 0.9% 1,000 ML IV ONE (16:15)
[2020-02-15] MEDS ORDERED: LACTULOSE 20Gm/30ML SOLN PO ONE (16:30)
[2020-02-15] MEDS ORDERED: dilTIAZem 25 MG/5 ML VIAL IV ONE (17:45)
[2020-02-15] MEDS ORDERED: MORPHINE SULF INJ 2 MG/ML SYRINGE 1ML IV PRN ×2 (19:30)
[2020-02-15] MEDS ORDERED: NITROGLYCERIN 0.4 MG SL TAB SL PRN (19:30)
[2020-02-15] MEDS ORDERED: DOCUSATE SOD 100 MG CAP PO PRN (19:30)
[2020-02-15] MEDS ORDERED: ACETAMINOPHEN 500 MG TAB PO PRN (19:30)
[2020-02-15] MEDS ORDERED: LACTULOSE 20Gm/30ML SOLN PO PRN (19:30)
[2020-02-15] MEDS ORDERED: HYDROcodone-ACET 5/325MG TAB PO PRN (19:30)
[2020-02-15] MEDS ORDERED: SOD CHL 0.9%/ KCL 20MEQ 1,000 ML IV ONE (19:45)
[2020-02-15] MEDS: dilTIAZem 125mg/125ml BAG KIT 125 ML IV SCH (20:04)
[2020-02-15] MEDS ORDERED: ALBUMIN 5% 250 ML IV ONE (21:30)
[2020-02-15] MEDS: ENOXAPARIN SOD 80 MG/0.8ML SYRINGE SC SCH (21:45)
[2020-02-16] VITALS (15 sets, daily range): BP systolic 84–113; BP diastolic 56–71
[2020-02-16 08:33] LABS: Calcium 8.2 mg/dL (8.5-10.1); Magnesium 2.9 mg/dL (1.6-2.6)
[2020-02-16] MEDS: ONDANSETRON HCL 4 MG/2 ML VIAL IV PRN (09:07)
[2020-02-16 09:24] LABS: Basophils # (auto) 0 10 ^3/uL (0-0.2); Basophils % (auto) 0.1 % (0.0-2.0); Eosinophils # (auto) 0 10 ^3/uL (0-0.8); Eosinophils % (auto) 0.2 % (0.0-7.0); Hemoglobin 14.3 g/dL (13.5-17.5); Lymphocytes # (auto) 1.1 10 ^3/uL (0.4-5.4); Lymphocytes % (auto) 12.2 % (10.0-50.0); Mean Corpuscular Hemoglobin 27.4 pg (28.0-32.0); Mean Corpuscular Hgb Conc. 31.2 g/dL (32.0-36.0); Mean Corpuscular Volume 87.8 fL (80.0-100.0); Monocytes % (auto) 10.5 % (0.0-12.0); Neutrophils # (auto) 7.1 10 ^3/uL (1.6-8.6); Nucleated Red Blood Cells % 0.1 %; Platelet Count (auto) 202 10^3/uL (140-450); Red Blood Cells 5.24 10^6/uL (4.5-5.90); Red Cell Distribution Width 15.8 % (11.8-14.3); White Blood Cell 9.2 10^3/uL (4.4-10.8)
[2020-02-16] MEDS ORDERED: POTASSIUM EFFERVESENT TAB 25 MEQ PO ONE ×2 (09:45→16:15)
[2020-02-16] MEDS ORDERED: ENOXAPARIN SOD 40 MG/0.4 ML SYRINGE SC SCH (10:00)
[2020-02-16] MEDS: dilTIAZem 125mg/125ml BAG KIT 125 ML IV SCH ×2 (10:05→18:35)
[2020-02-16] MEDS: PANTOPRAZOLE 40 MG TAB PO SCH (10:18)
[2020-02-16] MEDS: ENOXAPARIN SOD 80 MG/0.8ML SYRINGE SC SCH ×2 (10:18→22:18)
[2020-02-16] MEDS: ERTAPENEM SOD INJ 1 GM in SODIUM CHL 0.9% 50 ML IV SCH (10:45)
[2020-02-16] MEDS ORDERED: DIGOXIN (250MCG/ML) 2 ML AMPULE IV ONE (13:45)
[2020-02-17] VITALS (64 sets, daily range): BP systolic 92–131; BP diastolic 52–82
[2020-02-17 04:01] LABS: Basophils # (auto) 0 10 ^3/uL (0-0.2); Basophils % (auto) 0.2 % (0.0-2.0); Eosinophils # (auto) 0.1 10 ^3/uL (0-0.8); Eosinophils % (auto) 1.3 % (0.0-7.0); Hematocrit 42.1 % (41.0-53.0); Hemoglobin 13.8 g/dL (13.5-17.5); Lymphocytes # (auto) 1.1 10 ^3/uL (0.4-5.4); Lymphocytes % (auto) 13.5 % (10.0-50.0); Mean Corpuscular Hemoglobin 27.5 pg (28.0-32.0); Mean Corpuscular Hgb Conc. 32.6 g/dL (32.0-36.0); Mean Corpuscular Volume 84.1 fL (80.0-100.0); Monocytes # (auto) 0.8 10 ^3/uL (0-1.3); Monocytes % (auto) 9.9 % (0.0-12.0); Neutrophils # (auto) 6.1 10 ^3/uL (1.6-8.6); Neutrophils % (auto) 75.1 % (37.0-80.0); Nucleated Red Blood Cells % 0.1 %; Platelet Count (auto) 258 10^3/uL (140-450); Red Blood Cells 5.01 10^6/uL (4.5-5.90); Red Cell Distribution Width 15.3 % (11.8-14.3); White Blood Cell 8.2 10^3/uL (4.4-10.8)
[2020-02-17 04:20] LABS: Albumin 2.3 g/dL (3.4-5.0); Calcium 8.1 mg/dL (8.5-10.1); Magnesium 2.8 mg/dL (1.6-2.6); Potassium 3.3 mmol/L (3.5-5.1)
[2020-02-17 04:24] LABS: BUN/Creatinine Ratio 27.8; Bilirubin, Total 0.9 mg/dL (0.2-1.0); Total Protein 6.3 g/dL (6.4-8.2)
[2020-02-17] MEDS ORDERED: POTASSIUM EFFERVESENT TAB 25 MEQ PO ONE (08:00)
[2020-02-17] MEDS ORDERED: POTASSIUM CHLORIDE 40 MEQ, LIDOCAINE 1% (LOCAL ANESTH.) 4 ML in SODIUM CHL 0.9% 100 ML IV ONE (08:00)
[2020-02-17] MEDS: ERTAPENEM SOD INJ 1 GM in SODIUM CHL 0.9% 50 ML IV SCH (09:34)
[2020-02-17] MEDS: PANTOPRAZOLE 40 MG TAB PO SCH (09:35)
[2020-02-17] MEDS: ENOXAPARIN SOD 80 MG/0.8ML SYRINGE SC SCH ×2 (09:35→22:57)
[2020-02-17] MEDS: ONDANSETRON HCL 4 MG/2 ML VIAL IV PRN ×2 (10:13→15:56)
[2020-02-17] MEDS ORDERED: VANCOMYCIN HCL 125MG/5ML ORAL SOL PO ONE (14:00)
[2020-02-17] MEDS ORDERED: DONE10TA17 PO (16:08)
[2020-02-17] MEDS ORDERED: MEMA1TAB3 PO (16:22)
[2020-02-17] MEDS ORDERED: TAM04C PO (16:22)
[2020-02-17] MEDS ORDERED: CLON0.1T PO (16:22)
[2020-02-17] MEDS ORDERED: FLEETMIN PR (16:22)
[2020-02-17] MEDS ORDERED: ATOR20TA PO (16:22)
[2020-02-17] MEDS ORDERED: MAGN400S25 PO (16:22)
[2020-02-17] MEDS ORDERED: ACET-1304 PO (16:22)
[2020-02-17] MEDS ORDERED: NITR0.4S29 SL (16:22)
[2020-02-17] MEDS ORDERED: TRAM50TA2 PO (16:22)
[2020-02-17] MEDS ORDERED: LACT10SO59 PO (16:22)
[2020-02-17] MEDS ORDERED: ASPI-543 PO (16:22)
[2020-02-17] MEDS: VANCOMYCIN HCL 125MG/5ML ORAL SOL PO SCH ×2 (18:56→22:00)
[2020-02-17] MEDS: SODIUM CHLORIDE 0.9% 1,000 ML IV SCH (18:57)
[2020-02-17] MEDS: FLORASTOR (S. BOULARDII) 250 MG CAP PO SCH (22:57)
[2020-02-18] VITALS (34 sets, daily range): BP systolic 89–122; BP diastolic 56–74
[2020-02-18 04:48] LABS: BUN/Creatinine Ratio 30.1; Calcium 7.9 mg/dL (8.5-10.1); Magnesium 2.7 mg/dL (1.6-2.6); Potassium 3.9 mmol/L (3.5-5.1)
[2020-02-18] MEDS: VANCOMYCIN HCL 125MG/5ML ORAL SOL PO SCH ×4 (05:36→22:00)
[2020-02-18] MEDS: SODIUM CHLORIDE 0.9% 1,000 ML IV SCH (07:50)
[2020-02-18] MEDS: PANTOPRAZOLE 40 MG TAB PO SCH (09:35)
[2020-02-18] MEDS: FLORASTOR (S. BOULARDII) 250 MG CAP PO SCH ×2 (09:35→22:00)
[2020-02-18] MEDS: ERTAPENEM SOD INJ 1 GM in SODIUM CHL 0.9% 50 ML IV SCH (09:35)
[2020-02-18] MEDS: ENOXAPARIN SOD 80 MG/0.8ML SYRINGE SC SCH ×2 (09:36→22:00)
[2020-02-19] VITALS (44 sets, daily range): BP systolic 91–127; BP diastolic 60–79
[2020-02-19 04:18] LABS: Basophils # (auto) 0 10 ^3/uL (0-0.2); Basophils % (auto) 0.4 % (0.0-2.0); Eosinophils # (auto) 0.2 10 ^3/uL (0-0.8); Eosinophils % (auto) 2.1 % (0.0-7.0); Hematocrit 34.3 % (41.0-53.0); Lymphocytes # (auto) 0.9 10 ^3/uL (0.4-5.4); Lymphocytes % (auto) 12.4 % (10.0-50.0); Mean Corpuscular Hemoglobin 27.4 pg (28.0-32.0); Mean Corpuscular Hgb Conc. 32.1 g/dL (32.0-36.0); Mean Corpuscular Volume 85.4 fL (80.0-100.0); Monocytes # (auto) 0.6 10 ^3/uL (0-1.3); Monocytes % (auto) 8.6 % (0.0-12.0); Neutrophils # (auto) 5.6 10 ^3/uL (1.6-8.6); Neutrophils % (auto) 76.5 % (37.0-80.0); Nucleated Red Blood Cells % 0.1 %; Platelet Count (auto) 245 10^3/uL (140-450); Red Blood Cells 4.02 10^6/uL (4.5-5.90); Red Cell Distribution Width 15.3 % (11.8-14.3); White Blood Cell 7.4 10^3/uL (4.4-10.8)
[2020-02-19 04:50] LABS: BUN/Creatinine Ratio 26.8; Calcium 7.5 mg/dL (8.5-10.1); Magnesium 2.3 mg/dL (1.6-2.6); Potassium 3.2 mmol/L (3.5-5.1)
[2020-02-19] MEDS: PANTOPRAZOLE 40 MG TAB PO SCH (10:26)
[2020-02-19] MEDS: ERTAPENEM SOD INJ 1 GM in SODIUM CHL 0.9% 50 ML IV SCH (10:26)
[2020-02-19] MEDS: ENOXAPARIN SOD 80 MG/0.8ML SYRINGE SC SCH ×2 (10:26→21:38)
[2020-02-19] MEDS: FLORASTOR (S. BOULARDII) 250 MG CAP PO SCH ×2 (10:26→21:38)
[2020-02-19] MEDS: VANCOMYCIN HCL 125MG/5ML ORAL SOL PO SCH ×3 (14:37→21:38)
[2020-02-19] MEDS ORDERED: POTASSIUM CHL 20 Meq TABLET PO ONE (15:30)
[2020-02-19] MEDS: TAMSULOSIN HYDROCHLORIDE 0.4 MG CAP PO SCH (17:38)
[2020-02-19] MEDS: DONEPEZIL HYDROCHLORIDE 5 MG TAB PO SCH (21:38)
[2020-02-20] VITALS (7 sets, daily range): BP systolic 94–149; BP diastolic 52–83
[2020-02-20] MEDS: VANCOMYCIN HCL 125MG/5ML ORAL SOL PO SCH ×4 (06:00→21:46)
[2020-02-20 06:30] LABS: Basophils # (auto) 0 10 ^3/uL (0-0.2); Basophils % (auto) 0.3 % (0.0-2.0); Eosinophils # (auto) 0.1 10 ^3/uL (0-0.8); Eosinophils % (auto) 2.3 % (0.0-7.0); Hematocrit 34.6 % (41.0-53.0); Hemoglobin 11.3 g/dL (13.5-17.5); Lymphocytes % (auto) 17.2 % (10.0-50.0); Mean Corpuscular Hemoglobin 27.7 pg (28.0-32.0); Mean Corpuscular Hgb Conc. 32.6 g/dL (32.0-36.0); Mean Corpuscular Volume 85.1 fL (80.0-100.0); Monocytes # (auto) 0.6 10 ^3/uL (0-1.3); Monocytes % (auto) 10.5 % (0.0-12.0); Neutrophils % (auto) 69.7 % (37.0-80.0); Platelet Count (auto) 251 10^3/uL (140-450); Red Blood Cells 4.07 10^6/uL (4.5-5.90); Red Cell Distribution Width 15.3 % (11.8-14.3); White Blood Cell 5.7 10^3/uL (4.4-10.8)
[2020-02-20 06:46] LABS: BUN/Creatinine Ratio 15.3; Calcium 7.9 mg/dL (8.5-10.1); Potassium 3.3 mmol/L (3.5-5.1)
[2020-02-20] MEDS ORDERED: DEXTROSE (50%) 50ML SYRG IV PRN (07:15)
[2020-02-20] MEDS: ERTAPENEM SOD INJ 1 GM in SODIUM CHL 0.9% 50 ML IV SCH (09:30)
[2020-02-20] MEDS: FLORASTOR (S. BOULARDII) 250 MG CAP PO SCH ×2 (09:30→21:46)
[2020-02-20] MEDS: ENOXAPARIN SOD 80 MG/0.8ML SYRINGE SC SCH ×2 (09:31→21:46)
[2020-02-20] MEDS ORDERED: D5W/SOD CHL 0.9%/KCL 40MEQ 1,000 ML IV ONE (10:30)
[2020-02-20] MEDS: ACCU-CHEK COMFORT CURVE STRIP VI SCH ×3 (11:13→21:46)
[2020-02-20] MEDS: Ensure HIGH Protein Vanilla 8oz Bottle PO SCH ×2 (12:44→18:00)
[2020-02-20] MEDS ORDERED: metroNIDAZOLE 500MG/100ML 100 ML IV SCH (14:00)
[2020-02-20] MEDS: metroNIDAZOLE 500MG/100ML 100 ML IV SCH ×2 (14:04→21:45)
[2020-02-20] MEDS: TAMSULOSIN HYDROCHLORIDE 0.4 MG CAP PO SCH (17:37)
[2020-02-20] MEDS: DONEPEZIL HYDROCHLORIDE 5 MG TAB PO SCH (21:46)
[2020-02-21 05:00] VITALS: BP 126/90
[2020-02-21 05:49] LABS: Basophils # (auto) 0 10 ^3/uL (0-0.2); Basophils % (auto) 0.7 % (0.0-2.0); Eosinophils # (auto) 0.1 10 ^3/uL (0-0.8); Hematocrit 31.4 % (41.0-53.0); Hemoglobin 10.3 g/dL (13.5-17.5); Lymphocytes # (auto) 0.7 10 ^3/uL (0.4-5.4); Lymphocytes % (auto) 17.1 % (10.0-50.0); Mean Corpuscular Hemoglobin 27.6 pg (28.0-32.0); Mean Corpuscular Hgb Conc. 32.9 g/dL (32.0-36.0); Mean Corpuscular Volume 83.9 fL (80.0-100.0); Monocytes # (auto) 0.5 10 ^3/uL (0-1.3); Monocytes % (auto) 11.3 % (0.0-12.0); Neutrophils % (auto) 67.9 % (37.0-80.0); Nucleated Red Blood Cells % 0.1 %; Platelet Count (auto) 252 10^3/uL (140-450); Red Blood Cells 3.74 10^6/uL (4.5-5.90); Red Cell Distribution Width 14.9 % (11.8-14.3); White Blood Cell 4.4 10^3/uL (4.4-10.8)
[2020-02-21] MEDS: metroNIDAZOLE 500MG/100ML 100 ML IV SCH ×3 (06:02→23:45)
[2020-02-21] MEDS: VANCOMYCIN HCL 125MG/5ML ORAL SOL PO SCH ×4 (06:02→23:46)
[2020-02-21] MEDS: ACCU-CHEK COMFORT CURVE STRIP VI SCH ×4 (06:02→22:00)
[2020-02-21 06:03] LABS: Calcium 7.4 mg/dL (8.5-10.1); Potassium 3.3 mmol/L (3.5-5.1)
[2020-02-21] MEDS: Ensure HIGH Protein Vanilla 8oz Bottle PO SCH ×3 (08:00→17:29)
[2020-02-21 09:00] VITALS: BP 127/67
[2020-02-21] MEDS ORDERED: D5W/SOD CHL 0.45%/KCL 40MEQ 1,000 ML IV ONE (09:30)
[2020-02-21] MEDS: LINEZOLID 600MG/300ML 300 ML IV SCH ×2 (09:54→23:45)
[2020-02-21] MEDS: FLORASTOR (S. BOULARDII) 250 MG CAP PO SCH ×2 (09:54→23:46)
[2020-02-21] MEDS: ENOXAPARIN SOD 80 MG/0.8ML SYRINGE SC SCH ×2 (09:54→23:46)
[2020-02-21 13:00] VITALS: BP 138/77
[2020-02-21 16:58] VITALS: BP 138/81
[2020-02-21] MEDS: TAMSULOSIN HYDROCHLORIDE 0.4 MG CAP PO SCH (17:29)
[2020-02-21] MEDS: DONEPEZIL HYDROCHLORIDE 5 MG TAB PO SCH (23:46)
[2020-02-22 05:40] VITALS: BP 111/74
[2020-02-22] MEDS: metroNIDAZOLE 500MG/100ML 100 ML IV SCH (06:17)
[2020-02-22] MEDS: ACCU-CHEK COMFORT CURVE STRIP VI SCH (06:18)
[2020-02-22] MEDS: VANCOMYCIN HCL 125MG/5ML ORAL SOL PO SCH ×4 (06:18→21:52)
[2020-02-22 06:20] LABS: Hematocrit 33.1 % (41.0-53.0); Hemoglobin 10.8 g/dL (13.5-17.5); Mean Corpuscular Hemoglobin 27.9 pg (28.0-32.0); Mean Corpuscular Hgb Conc. 32.6 g/dL (32.0-36.0); Mean Corpuscular Volume 85.8 fL (80.0-100.0); Platelet Count (auto) 248 10^3/uL (140-450); Red Blood Cells 3.86 10^6/uL (4.5-5.90); Red Cell Distribution Width 15.3 % (11.8-14.3); White Blood Cell 5.2 10^3/uL (4.4-10.8)
[2020-02-22 06:40] LABS: Basophils % (manual) 0 (0.0-2.0); Blast Cells 0; Metamyelocytes % 0; Myelocytes % 0; Promyelocytes % 0; Reactive Lymphocytes 0
[2020-02-22 07:04] LABS: BUN/Creatinine Ratio 8.3; Calcium 7.6 mg/dL (8.5-10.1)
[2020-02-22 07:08] LABS: Band Neutrophils % (manual) 2; Eosinophils % (manual) 2 (0-7); Lymphocytes % (manual) 17 (10.0-50.0); Monocytes % (manual) 10 (0-12)
[2020-02-22 08:00] VITALS: BP 109/69
[2020-02-22] MEDS: Ensure HIGH Protein Vanilla 8oz Bottle PO SCH ×3 (08:00→18:00)
[2020-02-22 09:02] VITALS: BP 109/69
[2020-02-22] MEDS: ENOXAPARIN SOD 80 MG/0.8ML SYRINGE SC SCH ×2 (10:00→21:54)
[2020-02-22] MEDS: LINEZOLID 600MG/300ML 300 ML IV SCH (10:00)
[2020-02-22] MEDS: FLORASTOR (S. BOULARDII) 250 MG CAP PO SCH ×2 (10:00→21:54)
[2020-02-22] MEDS ORDERED: POTASSIUM CHL 20 Meq TABLET PO ONE (10:30)
[2020-02-22] MEDS ORDERED: metroNIDAZOLE 500 MG TAB PO ONE (10:45)
[2020-02-22 13:00] VITALS: BP 103/55
[2020-02-22] MEDS ORDERED: metroNIDAZOLE 500 MG TAB PO SCH (14:00)
[2020-02-22] MEDS ORDERED: LIDOCAINE 2% JELLY 11ml (GLYDO) UR ONE (14:30)
[2020-02-22 16:35] VITALS: BP 113/63
[2020-02-22] MEDS: TAMSULOSIN HYDROCHLORIDE 0.4 MG CAP PO SCH (18:42)
[2020-02-22 20:15] LABS: Urine Bacteria NONE SEEN /hpf (None Seen); Urine Blood 1+ /uL (Negative); Urine Mucus FEW (None Seen); Urine Specific Gravity 1.012 (1.001-1.035); Urine WBC 1 /hpf (0 - 3)
[2020-02-22] MEDS: metroNIDAZOLE 500 MG TAB PO SCH (21:53)
[2020-02-22] MEDS: DONEPEZIL HYDROCHLORIDE 5 MG TAB PO SCH (21:53)
[2020-02-22 22:00] VITALS: BP 125/72
[2020-02-23 05:00] VITALS: BP 118/79
[2020-02-23] MEDS: metroNIDAZOLE 500 MG TAB PO SCH ×3 (06:17→21:32)
[2020-02-23] MEDS: VANCOMYCIN HCL 125MG/5ML ORAL SOL PO SCH ×4 (06:17→21:34)
[2020-02-23 06:32] LABS: Potassium 3.3 mmol/L (3.5-5.1)
[2020-02-23 06:56] LABS: BUN/Creatinine Ratio 5.6; Calcium 7.6 mg/dL (8.5-10.1)
[2020-02-23] MEDS: Ensure HIGH Protein Vanilla 8oz Bottle PO SCH ×3 (08:00→18:00)
[2020-02-23 08:46] VITALS: BP 109/66
[2020-02-23] MEDS: ENOXAPARIN SOD 80 MG/0.8ML SYRINGE SC SCH (10:11)
[2020-02-23] MEDS: FLORASTOR (S. BOULARDII) 250 MG CAP PO SCH ×2 (10:11→21:33)
[2020-02-23] MEDS ORDERED: POTASSIUM CHL 20 Meq TABLET PO ONE (10:30)
[2020-02-23 12:49] VITALS: BP 98/69
[2020-02-23 16:33] VITALS: BP 106/67
[2020-02-23] MEDS: TAMSULOSIN HYDROCHLORIDE 0.4 MG CAP PO SCH (18:28)
[2020-02-23] MEDS: DONEPEZIL HYDROCHLORIDE 5 MG TAB PO SCH (21:32)
[2020-02-23] MEDS: APIXABAN 5 MG TAB PO SCH (21:34)
[2020-02-23 22:00] VITALS: BP 124/69
[2020-02-24 04:58] VITALS: BP 121/71
[2020-02-24] MEDS: VANCOMYCIN HCL 125MG/5ML ORAL SOL PO SCH ×4 (06:42→21:50)
[2020-02-24] MEDS: metroNIDAZOLE 500 MG TAB PO SCH (06:42)
[2020-02-24] MEDS: Ensure HIGH Protein Vanilla 8oz Bottle PO SCH ×3 (08:00→18:30)
[2020-02-24] MEDS: FLORASTOR (S. BOULARDII) 250 MG CAP PO SCH ×2 (09:33→21:50)
[2020-02-24] MEDS: APIXABAN 5 MG TAB PO SCH ×2 (09:33→21:50)
[2020-02-24 12:47] VITALS: BP 125/69
[2020-02-24 16:15] VITALS: BP 120/76
[2020-02-24] MEDS: TAMSULOSIN HYDROCHLORIDE 0.4 MG CAP PO SCH (18:30)
[2020-02-24 19:00] VITALS: BP 105/68
[2020-02-24 20:00] VITALS: BP 105/68
[2020-02-24] MEDS: DONEPEZIL HYDROCHLORIDE 5 MG TAB PO SCH (21:50)
[2020-02-24 22:00] VITALS: BP 105/68
[2020-02-25 05:00] VITALS: BP 91/57
[2020-02-25] MEDS: VANCOMYCIN HCL 125MG/5ML ORAL SOL PO SCH ×2 (05:21→12:13)
[2020-02-25] MEDS: Ensure HIGH Protein Vanilla 8oz Bottle PO SCH ×2 (08:00→12:13)
[2020-02-25 09:28] VITALS: BP 109/66
[2020-02-25] MEDS: APIXABAN 5 MG TAB PO SCH (09:40)
[2020-02-25] MEDS: FLORASTOR (S. BOULARDII) 250 MG CAP PO SCH (09:41)
== END 2020-02-25 14:31 | disposition home health service (06) | DRG 871 ==
LOC: ER 12:41 → EDBD 12:41 → TELE 12:42 → OVERFLOW 02-16 10:44 → ICU WEST 02-16 17:16 → TELE-CENTR 02-20 01:30
PROVIDERS: ADMIT Nurse Practitioner Acute Care; ATTEND Internal Medicine
DX: A41.9 Sepsis, unspecified organism (principal); N17.0 Acute kidney failure with tubular necrosis; A04.72 Enterocolitis due to Clostridium difficile, not specified as recurrent; I82.401 Acute embolism and thrombosis of unspecified deep veins of right lower extremity; D68.59 Other primary thrombophilia; K57.32 Diverticulitis of large intestine without perforation or abscess without bleeding; N39.0 Urinary tract infection, site not specified; E16.2 Hypoglycemia, unspecified; I25.10 Atherosclerotic heart disease of native coronary artery without angina pectoris; K59.00 Constipation, unspecified; K80.20 Calculus of gallbladder without cholecystitis without obstruction; E87.6 Hypokalemia; Z20.828 Contact with and (suspected) exposure to other viral communicable diseases; I48.91 Unspecified atrial fibrillation; F03.90 Unspecified dementia, unspecified severity, without behavioral disturbance, psychotic disturbance, mood disturbance, and anxiety; E78.5 Hyperlipidemia, unspecified; I12.9 Hypertensive chronic kidney disease with stage 1 through stage 4 chronic kidney disease, or unspecified chronic kidney disease; N18.30 Chronic kidney disease, stage 3 unspecified; N40.0 Benign prostatic hyperplasia without lower urinary tract symptoms; Z80.42 Family history of malignant neoplasm of prostate; Z82.49 Family history of ischemic heart disease and other diseases of the circulatory system; Z87.440 Personal history of urinary (tract) infections; Z79.01 Long term (current) use of anticoagulants; Z80.0 Family history of malignant neoplasm of digestive organs
CPT/HCPCS: 36415; 71045; 74176; 80048; 80053; 81001; 82270; 82962; 83036; 83735; 83880; 84443; 84484; 85007; 85025; 85027; 85379; 85610; 85730; 87081; 87086; 87088; 87186; 87426; 87493; 93005; 93306; 93970; 96361; 96374; 97110; 97116; 97530; G0378; J1335; J2001; J2405; J3490

== ENCOUNTER 2020-04-17 12:44 | Inpatient (IN) | payer MEDICARE ==
[~2020-04-17] VITALS: Ht 182.9 cm; Wt 68.0 kg
[~2020-04-17 12:44] MED LIST changes: +ACET-1304 PO; -ALFU10TA33 PO; +ASPI-543 PO; +ATOR20TA PO; +CLON0.1T PO; -DILT-23 PO; +DONE10TA17 PO; -DONE10TA40 PO; -DYA375C PO; +FLEETMIN PR; -KETO2CRE4 TOP; +LACT10SO59 PO; +MAGN400S25 PO; +NITR0.4S29 SL; -PRAV20TA3 PO; -PROP80CA40 PO; +TAM04C PO; +TRAM50TA2 PO
[2020-04-17] MEDS ORDERED: AMIODARONE 450mg/250ml AE 250 ML IV ONE (12:50)
[2020-04-17] MEDS ORDERED: AMIODARONE HCL (50 MG/ ML) 3 ML VIAL IV ONE (12:50)
[2020-04-17] MEDS ORDERED: NOREPINEPHRINE 8 MG/250ML KIT 250 ML IV ONE (12:58)
[2020-04-17 13:05] VITALS: BP 69/45
[2020-04-17] MEDS ORDERED: SODIUM BICARBONATE 8.4 % INJ 50ML VIAL IV ONE ×2 (13:06→13:45)
[2020-04-17] MEDS: NOREPINEPHRINE 8 MG/250ML KIT 250 ML IV SCH (13:07)
[2020-04-17] MEDS ORDERED: DOPamine 1600MCG/ML D5W 250 ML IV ONE (13:15)
[2020-04-17 13:22] LABS: Hematocrit 34.3 % (41.0-53.0); Mean Corpuscular Hemoglobin 27.4 pg (28.0-32.0)
[2020-04-17 13:23] LABS: Mean Corpuscular Hgb Conc. 29.1 g/dL (32.0-36.0); Mean Corpuscular Volume 94.1 fL (80.0-100.0); Platelet Count (auto) 174 10^3/uL (140-450); Red Blood Cells 3.64 10^6/uL (4.5-5.90); Red Cell Distribution Width 18.5 % (11.8-14.3); White Blood Cell 12.2 10^3/uL (4.4-10.8)
[2020-04-17 13:27] LABS: Basophils % (manual) 0 (0.0-2.0); Blast Cells 0; Eosinophils % (manual) 0 (0-7); Promyelocytes % 0; Reactive Lymphocytes 0
[2020-04-17] MEDS ORDERED: AMIODARONE 450mg/250ml AE 250 ML IV SCH (13:30)
[2020-04-17 13:33] LABS: Albumin 1.8 g/dL (3.4-5.0); BUN/Creatinine Ratio 11.6; Calcium 11.1 mg/dL (8.5-10.1); Potassium 3.5 mmol/L (3.5-5.1)
[2020-04-17 13:38] LABS: Bilirubin, Total 0.4 mg/dL (0.2-1.0); Total Protein 5.4 g/dL (6.4-8.2)
[2020-04-17 13:46] LABS: Lactic Acid w/Reflex 14.7 mmol/L (0.4-2.0)
[2020-04-17] MEDS: PHENYLEPHRINE IV 250 ML IV SCH ×2 (13:52→21:16)
[2020-04-17 13:55] LABS: Band Neutrophils % (manual) 11; Lymphocytes % (manual) 30 (10.0-50.0); Metamyelocytes % 3; Monocytes % (manual) 2 (0-12); Myelocytes % 3
[2020-04-17 14:51] VITALS: BP 90/51
[2020-04-17] MEDS ORDERED: VASOPRESSIN 20 UNIT/ML ONE (14:55)
[2020-04-17] MEDS: VASOPRESSIN 50 UNITS in D5W 5% 247.5 ML IV SCH (15:09)
[2020-04-17] MEDS ORDERED: MIDAZOLAM DRIP 50 mg/50mL 50 ML IV ONE (15:55)
[2020-04-17] MEDS ORDERED: AZITHROMYCIN 500MG/ 250ML 250 ML IV ONE (16:00)
[2020-04-17] MEDS ORDERED: methylPREDNISolone SOD SUCC 125 MG/2 ML VL IV ONE (16:00)
[2020-04-17] MEDS: MIDAZOLAM DRIP 50 mg/50mL 50 ML IV SCH (16:33)
[2020-04-17 18:30] VITALS: BP 88/44
[2020-04-17] MEDS ORDERED: NITROGLYCERIN 0.4 MG SL TAB SL PRN (18:45)
[2020-04-17] MEDS ORDERED: MORPHINE SULF INJ 2 MG/ML SYRINGE 1ML IV PRN ×2 (18:45→19:15)
[2020-04-17] MEDS ORDERED: ALBUTEROL SULF 2.5 MG/0.5ML(0.5%) NEB SOLN NEB PRN (19:15)
[2020-04-17] MEDS ORDERED: ALBUTEROL SULF HFA 90MCG INH 200DOSE IN PRN (19:15)
[2020-04-17] MEDS ORDERED: DEXTROSE (50%) 50ML SYRG IV PRN (19:15)
[2020-04-17] MEDS ORDERED: REMDESIVIR PER PHARMACY IV SCH (19:15)
[2020-04-17] MEDS ORDERED: ONDANSETRON HCL 4 MG/2 ML VIAL IV PRN (19:15)
[2020-04-17] MEDS ORDERED: LACTULOSE 20Gm/30ML SOLN NG PRN (19:15)
[2020-04-17 20:10] VITALS: BP 144/72
[2020-04-17] MEDS ORDERED: ENOXAPARIN SOD 40 MG/0.4 ML SYRINGE SC SCH (22:00)
[2020-04-17] MEDS ORDERED: BUDESONIDE (INHALATION) 180 MCG IH IN SCH (22:00)
[2020-04-17 22:40] VITALS: BP 138/51
[2020-04-17] MEDS ORDERED: ENOXAPARIN SOD 80 MG/0.8ML SYRINGE SC SCH (23:24)
[2020-04-17] MEDS: ACCU-CHEK COMFORT CURVE STRIP VI SCH (23:47)
[2020-04-17] MEDS: CLINDAMYCIN 600MG IV 50 ML IV SCH (23:47)
[2020-04-17] MEDS: InsuLIN REG 1unit/0.01ml Soln (100units/ml) SC SCH (23:47)
[2020-04-18] VITALS: BP 152/53
[2020-04-18 02:00] VITALS: BP 143/61
[2020-04-18] MEDS ORDERED: VASOPRESSIN 20 UNIT/ML ONE ×2 (03:41→03:45)
[2020-04-18] MEDS: InsuLIN REG 1unit/0.01ml Soln (100units/ml) SC SCH ×2 (06:00→12:55)
[2020-04-18] MEDS: PHENYLEPHRINE IV 250 ML IV SCH ×2 (06:02→14:30)
[2020-04-18 06:05] VITALS: BP 138/53
[2020-04-18] MEDS: ALBUTEROL SULF 2.5 MG/0.5ML(0.5%) NEB SOLN NEB SCH ×3 (06:05→13:45)
[2020-04-18] MEDS: IPRATROPIUM BROM 0.5 MG/2.5ML INH SOL NEB SCH ×3 (06:05→13:45)
[2020-04-18] MEDS: ACCU-CHEK COMFORT CURVE STRIP VI SCH ×2 (06:10→12:54)
[2020-04-18] MEDS: CLINDAMYCIN 600MG IV 50 ML IV SCH ×2 (06:15→14:42)
[2020-04-18 06:16] LABS: Hematocrit 36.5 % (41.0-53.0); Platelet Count (auto) 165 10^3/uL (140-450)
[2020-04-18 06:19] LABS: Hemoglobin 9.7 g/dL (13.5-17.5); Mean Corpuscular Hemoglobin 27.9 pg (28.0-32.0); Mean Corpuscular Hgb Conc. 26.5 g/dL (32.0-36.0); Mean Corpuscular Volume 105.4 fL (80.0-100.0); Red Blood Cells 3.46 10^6/uL (4.5-5.90)
[2020-04-18 06:27] LABS: Albumin 1.3 g/dL (3.4-5.0); Calcium 7.3 mg/dL (8.5-10.1); Potassium 4.2 mmol/L (3.5-5.1)
[2020-04-18 06:31] LABS: Blast Cells 0; Promyelocytes % 0; Reactive Lymphocytes 0
[2020-04-18 06:36] LABS: BUN/Creatinine Ratio 11.2; Bilirubin, Total 1.1 mg/dL (0.2-1.0); Total Protein 4.1 g/dL (6.4-8.2)
[2020-04-18 07:35] LABS: Band Neutrophils % (manual) 16; Basophils % (manual) 1 (0.0-2.0); Eosinophils % (manual) 1 (0-7); Lymphocytes % (manual) 22 (10.0-50.0); Metamyelocytes % 6; Monocytes % (manual) 6 (0-12); Myelocytes % 1
--- NOTE | 2020-04-18 07:55 | NUR ---
Respiratory note: CRITICAL ABG VALUE REPORTED TO DR. BURROWS.
[2020-04-18] MEDS ORDERED: SODIUM BICARBONATE 8.4 % INJ 50ML VIAL IV ONE ×3 (08:07→11:00)
[2020-04-18] MEDS ORDERED: SODIUM BICARBONATE 8.4% INJ 50ML SYRINGE ONE ×2 (08:17→08:30)
[2020-04-18] MEDS: SOD CHL 0.45% 1,000 ML IV SCH ×2 (08:42→15:40)
[2020-04-18] MEDS ORDERED: ASPirin 81 mg TAB NG SCH (10:00)
[2020-04-18] MEDS ORDERED: levoFLOXacin 500MG 100 ML IV ONE (10:00)
[2020-04-18] MEDS ORDERED: DexAMETHasone SOD PHOS 10MG/1ML VIAL INJ IV SCH (10:00)
[2020-04-18] MEDS ORDERED: ZINC SULFATE 220mg CAP or TAB PO SCH (10:00)
[2020-04-18] MEDS ORDERED: CHOLECALCIFEROL (VITD3) 2,000 UNIT CAP PO SCH (10:00)
[2020-04-18] MEDS ORDERED: ASCORBIC ACID 1,000 MG TAB PO SCH (10:00)
[2020-04-18 10:05] VITALS: BP 124/47
[2020-04-18] MEDS: NOREPINEPHRINE 8 MG/250ML KIT 250 ML IV SCH (13:15)
[2020-04-18 13:45] VITALS: BP 138/50
[2020-04-18] MEDS: VASOPRESSIN 50 UNITS in D5W 5% 247.5 ML IV SCH (14:45)
[2020-04-18] MEDS ORDERED: LORazepam 2MG/ML-1ML VIAL IV PRN (16:45)
[2020-04-18] MEDS ORDERED: MORPHINE SULF INJ 2 MG/ML SYRINGE 1ML IV ONE (16:45)
[2020-04-18 17:00] VITALS: BP 72/31
[2020-04-18] MEDS: MIDAZOLAM DRIP 50 mg/50mL 50 ML IV SCH (17:19)
[2020-04-20] MEDS ORDERED: levoFLOXacin 250MG 50 ML IV SCH (10:00)
== END 2020-04-18 17:10 | disposition expired | DRG 871 ==
LOC: EDBD 12:44 → ER 12:44 → TELE 12:45
PROVIDERS: ADMIT Internal Medicine; ATTEND Internal Medicine
PROC: 06HY33Z Insertion of Infusion Device into Lower Vein, Percutaneous Approach (ICD-10-PCS; principal; 2020-04-17)
PROC: 0BH17EZ Insertion of Endotracheal Airway into Trachea, Via Natural or Artificial Opening (ICD-10-PCS; 2020-04-17)
PROC: 5A12012 Performance of Cardiac Output, Single, Manual (ICD-10-PCS; 2020-04-17)
PROC: 5A1945Z Respiratory Ventilation, 24-96 Consecutive Hours (ICD-10-PCS; 2020-04-17)
PROC: 4A143B0 Monitoring of Venous Pressure, Central, Percutaneous Approach (ICD-10-PCS; 2020-04-17)
DX: A41.9 Sepsis, unspecified organism (principal); I21.A1 Myocardial infarction type 2; J96.00 Acute respiratory failure, unspecified whether with hypoxia or hypercapnia; K72.00 Acute and subacute hepatic failure without coma; R65.21 Severe sepsis with septic shock; J69.0 Pneumonitis due to inhalation of food and vomit; N17.0 Acute kidney failure with tubular necrosis; E87.0 Hyperosmolality and hypernatremia; G93.1 Anoxic brain damage, not elsewhere classified; I48.20 Chronic atrial fibrillation, unspecified; I46.9 Cardiac arrest, cause unspecified; E78.5 Hyperlipidemia, unspecified; F03.90 Unspecified dementia, unspecified severity, without behavioral disturbance, psychotic disturbance, mood disturbance, and anxiety; I12.9 Hypertensive chronic kidney disease with stage 1 through stage 4 chronic kidney disease, or unspecified chronic kidney disease; Z20.828 Contact with and (suspected) exposure to other viral communicable diseases; I25.10 Atherosclerotic heart disease of native coronary artery without angina pectoris; N18.9 Chronic kidney disease, unspecified; Z66 Do not resuscitate; Z80.0 Family history of malignant neoplasm of digestive organs; Z80.42 Family history of malignant neoplasm of prostate; Z82.49 Family history of ischemic heart disease and other diseases of the circulatory system; Z85.038 Personal history of other malignant neoplasm of large intestine; Z85.46 Personal history of malignant neoplasm of prostate; Z86.718 Personal history of other venous thrombosis and embolism; E11.65 Type 2 diabetes mellitus with hyperglycemia; E11.22 Type 2 diabetes mellitus with diabetic chronic kidney disease
CPT/HCPCS: 36415; 36600; 70450; 71045; 80053; 82550; 82728; 82805; 82962; 83036; 83605; 83615; 83735; 83880; 84443; 84484; 85007; 85027; 85379; 85652; 86141; 87040; 87070; 87077; 87186; 87205; 87426; 92950; 93005; 94002; 94003; 94640; 99291; G0378; J1956; J2250; J3490; J7060